=== PATIENT | male | born 1940 | race Caucasian/White ===

== ENCOUNTER 2017-07-29 14:26 | Emergency (ER) | payer MEDICARE, OTHER ==
[2017-07-29 14:45] VITALS: BP 160/85
--- NOTE | 2017-07-29 15:17 | ER Document Report ---
ED Medical Screen (RME) - General Chief Complaint: Back Pain Stated Complaint: BACK PAIN Time Seen by Provider: 07/29/17 15:10 Notes: RAPID MEDICAL EVALUATION DISCLOSURE I have seen this patient as part of a Rapid Medical Evaluation and, if applicable, placed any initially appropriate orders. The patient will be seen and fully evaluated, including a full history and physical exam, by a provider ( in Main ED or Fast Track) when a room becomes available. 77-year-old male here with complaints of left-sided flank pain as well as urinary frequency ongoing for the past few days. He has not had any hematuria or hesitancy. He has a history of kidney stones but reports this feels different. He has also been short of breath and coughing for the past 2-3 weeks and was admitted to the hospital in [place] for several days and he did receive nebulizer treatments and IV antibiotics for "bronchitis". He denies any heavy lifting or traumatic injury. EXAM Moderate left lumbar paraspinal muscle tenderness to light palpation Minimally diffuse coarse breath sounds bilaterally, no wheezes TRAVEL OUTSIDE OF THE [place] IN LAST 30 DAYS: No - Related Data Allergies/Adverse Reactions: ciprofloxacin [From Cipro] Allergy (Severe, Verified 11/04/11 14:50) ciprofloxacin HCl [From Cipro] Allergy (Severe, Verified 11/04/11 14:50) sulfamethoxazole [From Septra] Allergy (Severe, Verified 11/04/11 14:50) trimethoprim [From Septra] Allergy (Severe, Verified 11/04/11 14:50) latex [Latex] Allergy (Unknown, Verified 11/04/11 14:51) Penicillins Allergy (Verified 11/04/11 14:50) tylenol with codiene Allergy (Uncoded 11/04/11 14:50) Home Medications: naproxen. chondroitin. glucosamine. tylenol PRN. pantoprazole. lisinopril. lipitor. tessalon pearls. doxycycline Past Medical History - Social History Frequency of alcohol use: None Drug Abuse: None - Past Medical History Cardiac Medical History: Reports: Hx Hypercholesterolemia, Hx Hypertension Pulmonary Medical History: Reports: Hx Pneumonia Renal/ Medical History: Reports: Hx Renal Insufficiency - resolved. Denies: Hx Peritoneal Dialysis Malignancy Medical History: Reports Hx Prostate Cancer GI Medical History: Reports: Hx Gastroesophageal Reflux Disease, Hx Hiatal Hernia, Hx Colonoscopy, Hx Endoscopy Musculoskeltal Medical History: Reports Hx Arthritis, Reports Hx Musculoskeletal Deformity, Reports Hx Musculoskeletal Trauma Traumatic Medical History: Reports: Hx Fractures Past Surgical History: Reports: Hx Genitourinary Surgery - prostate removal, Hx Orthopedic Surgery - bilateral knee replacement, RIGHT HIP, reattachment of 3 adn 4 finger left - Immunizations Immunizations up to date: No Hx Diphtheria, Pertussis, Tetanus Vaccination: No - Pt states at least 7yrs ago Physical Exam - Vital signs Vitals: Temp Pulse Resp BP Pulse Ox 97.3 F 75 16 160/85 H 95 07/29/17 14:43 07/29/17 14:43 07/29/17 14:43 07/29/17 14:43 07/29/17 14:43 Course - Vital Signs Vital signs: Temp Pulse Resp BP Pulse Ox 97.3 F 75 16 160/85 H 95 07/29/17 14:43 07/29/17 14:43 07/29/17 14:43 07/29/17 14:43 07/29/17 14:43
[2017-07-29 15:40] LABS: ABSOLUTE BASOPHILS # (AUTO) 0.1 10^3/uL (0.0-0.2); ABSOLUTE EOSINOPHILS # (AUTO) 0.1 10^3/uL (0.0-0.6); ABSOLUTE LYMPHOCYTES (AUTO) 2.1 10^3/uL (0.5-4.7); ABSOLUTE MONOCYTES (AUTO) 0.5 10^3/uL (0.1-1.4); ABSOLUTE NEUT (AUTO) 4.6 10^3/uL (1.7-8.2); BASOPHILS % (AUTO) 0.8 % (0-2); HEMATOCRIT 44.4 % (37.9-51.0); LYMPHOCYTES % (AUTO) 28.2 % (13-45); MEAN CORPUSCULAR HEMOGLOBIN 30.8 pg (27.0-33.4); MEAN CORPUSCULAR HGB CONC 33.8 g/dL (32.0-36.0); MEAN CORPUSCULAR VOLUME 91 fl (80-97); PLATELET COUNT 222 10^3/uL (150-450); RED BLOOD COUNT 4.87 10^6/uL (4.35-5.55); RED CELL DISTRIBUTION WIDTH 14.2 % (11.5-14.0); TOTAL CELLS COUNTED % (AUTO) 100 %; WHITE BLOOD COUNT 7.3 10^3/uL (4.0-10.5)
[2017-07-29 15:45] LABS: APPEARANCE,URINE CLEAR; BILIRUBIN,URINE NEGATIVE (NEGATIVE); COLOR,URINE YELLOW; GLUCOSE, URINE NEGATIVE (NEGATIVE); KETONES,URINE NEGATIVE (NEGATIVE); LEUKOCYTE ESTERASE,URINE NEGATIVE (NEGATIVE); NITRITE,URINE NEGATIVE (NEGATIVE); PROTEIN,URINE NEGATIVE (NEGATIVE); UROBILINOGEN,URINE NEGATIVE mg/dL (<2.0)
--- NOTE | 2017-07-29 15:49 | RADIOLOGY REPORT (SQ) ---
EXAM DESCRIPTION: CHEST 2 VIEWS COMPLETED DATE/TIME: 07/29/2017 3:36 pm REASON FOR STUDY: cough SOB COMPARISON: 03/13/2011 EXAM PARAMETERS: NUMBER OF VIEWS: two views TECHNIQUE: Digital Frontal and Lateral radiographic views of the chest acquired. RADIATION DOSE: NA LIMITATIONS: none FINDINGS: LUNGS AND PLEURA: Slight to mild prominence of the interstitial markings in the lungs. N o acute pulmonary consolidation. No pneumothorax or pleural effusion. MEDIASTINUM AND HILAR STRUCTURES: No masses or contour abnormalities. HEART AND VASCULAR STRUCTURES: Heart normal size. No evidence for failure. BONES: No acute findings. HARDWARE: None in the chest. OTHER: No other significant finding. IMPRESSION: 1 No significant interval changes since the prior examination dated 03/13/2011. No acut e pulmonary findings. TECHNICAL DOCUMENTATION: JOB ID: [id number] [employer]- All Rights Reserved Reading location - IP/workstation name: [email or web address]
--- NOTE | 2017-07-29 15:55 | ER Document Report ---
ED General - General Chief Complaint: Back Pain Stated Complaint: BACK PAIN Time Seen by Provider: 07/29/17 15:10 Mode of Arrival: Ambulatory Information source: Patient Notes: 77-year-old male with a history of hypertension, hyperlipidemia, previous kidney stones presents with complaint of left lower back pain that started 3 days prior to arrival. Patient describes the pain as sharp, intermittent and located in the paraspinal musculature of the lumbar spine on the left. Patient reports pain is worse with movement, walking and relieved with remaining still. He denies leg weakness. Patient denies any injury, falls. He admits to associated urinary frequency but denies dysuria or hematuria. He has taken Tylenol for pain without relief. He does report a recent hospitalization in [place] for pneumonia. He is currently taking antibiotics for this. Patient denies fever, chills, chest pain, shortness of breath, abdominal pain. TRAVEL OUTSIDE OF THE [place] IN LAST 30 DAYS: No - Related Data Allergies/Adverse Reactions: ciprofloxacin [From Cipro] Allergy (Severe, Verified 11/04/11 14:50) ciprofloxacin HCl [From Cipro] Allergy (Severe, Verified 11/04/11 14:50) sulfamethoxazole [From Septra] Allergy (Severe, Verified 11/04/11 14:50) trimethoprim [From Septra] Allergy (Severe, Verified 11/04/11 14:50) latex [Latex] Allergy (Unknown, Verified 11/04/11 14:51) Penicillins Allergy (Verified 11/04/11 14:50) tylenol with codiene Allergy (Uncoded 11/04/11 14:50) Home Medications: naproxen. chondroitin. glucosamine. tylenol PRN. pantoprazole. lisinopril. lipitor. tessalon pearls. doxycycline Past Medical History - General Information source: Patient, Relative - Social History Smoking Status: Never Smoker Frequency of alcohol use: None Drug Abuse: None Family History: Arthritis, CAD, Hyperlipidemia, Hypertension, Malignancy Patient has suicidal ideation: No Patient has homicidal ideation: No - Past Medical History Cardiac Medical History: Reports: Hx Hypercholesterolemia, Hx Hypertension Pulmonary Medical History: Reports: Hx Pneumonia Renal/ Medical History: Reports: Hx Renal Insufficiency - resolved. Denies: Hx Peritoneal Dialysis Malignancy Medical History: Reports Hx Prostate Cancer GI Medical History: Reports: Hx Gastroesophageal Reflux Disease, Hx Hiatal Hernia, Hx Colonoscopy, Hx Endoscopy Musculoskeltal Medical History: Reports Hx Arthritis, Reports Hx Musculoskeletal Deformity, Reports Hx Musculoskeletal Trauma Traumatic Medical History: Reports: Hx Fractures Past Surgical History: Reports: Hx Genitourinary Surgery - prostate removal, Hx Orthopedic Surgery - bilateral knee replacement, RIGHT HIP, reattachment of 3 adn 4 finger left - Immunizations Immunizations up to date: No Hx Diphtheria, Pertussis, Tetanus Vaccination: No - Pt states at least 7yrs ago Hx Pneumococcal Vaccination: 03/25/09 Review of Systems - Review of Systems Notes: Patient denies fever, chills, nausea, vomiting, headache, ear pain, sore throat , cough, chest pain, shortness of breath, abdominal pain, back pain, dysuria, hematuria, rash, weakness, urinary retention, saddle anesthesia, fecal incontinence. Physical Exam - Vital signs Vitals: Temp Pulse Resp BP Pulse Ox 97.3 F 75 16 160/85 H 95 07/29/17 14:43 07/29/17 14:43 07/29/17 14:43 07/29/17 14:43 07/29/17 14:43 Interpretation: Normal, Hypertensive - patient reports being out of his lisinopril for the last 4 days. Notes: PHYSICAL EXAMINATION: GENERAL: Well-appearing, well-nourished and in no acute distress. HEAD: Atraumatic, normocephalic. EYES: Pupils equal round and reactive to light, extraocular movements intact, sclera anicteric, conjunctiva are normal. ENT: Nares patent, oropharynx clear without exudates. Moist mucous membranes. NECK: Normal range of motion, supple without lymphadenopathy LUNGS: Breath sounds clear to auscultation bilaterally and equal. No wheezes rales or rhonchi. HEART: Regular rate and rhythm without murmurs ABDOMEN: Soft, nontender, nondistended abdomen. No guarding, no rebound. No masses appreciated. Musculoskeletal: Normal range of motion, no pitting or edema. No cyanosis. left CVA tenderness. NEUROLOGICAL: Cranial nerves grossly intact. Normal speech, normal gait. Normal sensory, motor exams. 5/5 strength in dorsi and plantar flexion. Straight leg raise negative bilaterally. PSYCH: Normal mood, normal affect. SKIN: Warm, Dry, normal turgor, no rashes or lesions noted. Course - Re-evaluation Re-evalutation: 07/31/17 14:25 Microbiology 07/29/17 16:15 Blood Culture - Preliminary Blood NO GROWTH IN 24 HOURS 07/29/17 16:03 Blood Culture - Preliminary Blood NO GROWTH IN 24 HOURS Laboratory 07/29/17 07/29/17 07/29/17 15:25 15:25 15:25 WBC 7.3 RBC 4.87 Hgb 15.0 Hct 44.4 MCV 91 MCH 30.8 MCHC 33.8 RDW 14.2 H Plt Count 222 Seg Neutrophils % 63.0 Lymphocytes % 28.2 Monocytes % 7.0 Eosinophils % 1.0 Basophils % 0.8 Absolute Neutrophils 4.6 Absolute Lymphocytes 2.1 Absolute Monocytes 0.5 Absolute Eosinophils 0.1 Absolute Basophils 0.1 Sodium 142.4 Potassium 4.3 Chloride 107 Carbon Dioxide 27 Anion Gap 8 BUN 21 H Creatinine 0.94 Est GFR ( Amer) > 60 Est GFR (Non-Af Amer) > 60 Glucose 97 Calcium 9.5 Total Bilirubin 0.5 Direct Bilirubin 0.3 Neonat Total Bilirubin Not Reportable Neonat Direct Bilirubin Not Reportable Neonat Indirect Bili Not Reportable AST 16 L ALT 23 Alkaline Phosphatase 58 Total Protein 5.9 L Albumin 3.7 Lipase 99.0 Urine Color YELLOW Urine Appearance CLEAR Urine pH 5.0 Ur Specific [place] 1.020 Urine Protein NEGATIVE Urine Glucose (UA) NEGATIVE Urine Ketones NEGATIVE Urine Blood NEGATIVE Urine Nitrite NEGATIVE Urine Bilirubin NEGATIVE Urine Urobilinogen NEGATIVE Ur Leukocyte Esterase NEGATIVE Urine WBC (Auto) 1 Urine RBC (Auto) 0 Urine Mucus (Auto) RARE Urine Ascorbic Acid NEGATIVE Chest X-Ray 07/29/17 15:15 IMPRESSION: 1 No significant interval changes since the prior examination dated 03/13/2011. No acute pulmonary findings. Abdomen/Pelvis CT 07/29/17 15:49 IMPRESSION: 1. Bilateral renal calculi. Mild dilatation of the distal left ureter without visualized ureteral or bladder stone, possibly due to recent stone passage. 2. Cholelithiasis. 07/31/17 14:26 77-year-old male presents with complaint of left flank pain started 3 days prior to all. Upon arrival vitals reviewed patient is hypertensive he is in no acute distress. He does not appear toxic or dehydrated. On exam patient's does have left CVA tenderness. Abdomen is within normal limits. CT of the abdomen and pelvis did show bilateral renal calculi and mild dilation of the distal left visualization of the stone which could indicate that the patient recently passed stone. Patient has no significant laboratory findings, urinalysis is without infection. Patient did receive low-dose Toradol and Tylenol for his pain. On reevaluation he states the pain has improved. I did discuss the findings of the CAT scan with the and the patient. He is requesting discharge home at this point. Patient and spouse were provided the opportunity to ask questions, and express concerns. Discharge instructions discussed. Patient is agreeable with discharge home. Return indications explained and discussed with the patient who displays understanding. Patient encouraged to return to the emergency department immediately with any concerns. - Vital Signs Vital signs: Temp Pulse Resp BP Pulse Ox 97.3 F 75 16 160/85 H 95 07/29/17 14:43 07/29/17 14:43 07/29/17 14:43 07/29/17 14:43 07/29/17 14:43 - Laboratory Result Diagrams: 07/29/17 15:25 07/29/17 15:25 Laboratory results interpreted by me: 07/29/17 07/29/17 15:25 15:25 RDW 14.2 H BUN 21 H AST 16 L Total Protein 5.9 L - Diagnostic Test Radiology reviewed: Image reviewed, Reports reviewed Discharge - Discharge Clinical Impression: Left flank pain Condition: Good Disposition: HOME, SELF-CARE Instructions: Flank Pain ([facility]), Gallbladder Disease ([facility]), Kidney Stone ([facility]) Additional Instructions: Follow up with your physician tomorrow for further care or return to the ED IMMEDIATELY if symptoms worsen or new concerns occur. If you cannot afford to follow up with your primary care physician a list of low cost clinics have been provided at the end of your discharge papers as well. Prescriptions: Hydrocodone/Acetaminophen [[place] 5-325 mg Tablet] 1 tab PO Q6H #10 tablet Forms: Elevated Blood Pressure
[2017-07-29 16:01] LABS: ALANINE AMINOTRANSFERASE 23 U/L (21-72); ALBUMIN 3.7 g/dL (3.5-5.0); ALKALINE PHOSPHATASE 58 U/L (38-126); ANION GAP 8 (5-19); ASPARTATE AMINO TRANSFERASE 16 U/L (17-59); BILIRUBIN,DIRECT 0.3 mg/dL (0.0-0.4); BILIRUBIN,TOTAL 0.5 mg/dL (0.2-1.3); BLOOD UREA NITROGEN 21 mg/dL (7-20); CALCIUM 9.5 mg/dL (8.4-10.2); CARBON DIOXIDE 27 mmol/L (22-30); CHLORIDE 107 mmol/L (98-107); GLUCOSE 97 mg/dL (75-110); POTASSIUM 4.3 mmol/L (3.6-5.0); SODIUM 142.4 mmol/L (137-145); TOTAL PROTEIN 5.9 g/dL (6.3-8.2)
[2017-07-29] MEDS ORDERED: ACETAMINOPHEN 325 MG TABLET PO ONE (16:45)
[2017-07-29] MEDS ORDERED: KETOROLAC TROMETHAMINE 60 MG/2 ML SDV IM ONE (16:45)
--- NOTE | 2017-07-29 16:50 | RADIOLOGY REPORT (SQ) ---
EXAM DESCRIPTION: CT ABD/PELVIS NO ORAL OR IV COMPLETED DATE/TIME: 07/29/2017 4:34 pm REASON FOR STUDY: left flank pain COMPARISON: 02/19/2015. TECHNIQUE: CT scan of the abdomen and pelvis performed without intravenous or oral contrast. Images reviewed with lung, soft tissue, and bone windows. Reconstructed coronal and sagittal MPR images revi ewed. All images stored on PACS. All CT scanners at this facility use dose modulation, iterative reconstruction, and/or weight based d osing when appropriate to reduce radiation dose to as low as reasonably achievable (ALARA). [facility]: Dose Right [facility]: CareDose [facility]: Dose Right [facility]: Teradose 4D [facility]: Smart Qwilt RADIATION DOSE: CT Rad equipment meets quality standard of care and radiation dose reduction techniq ues were employed. CTDIvol: 16.5 mGy. DLP: 949 mGy-cm.mGy. LIMITATIONS: Artifact from right hip arthroplasty. FINDINGS: LOWER CHEST: No significant findings. No nodules or infiltrates. NON-CONTRASTED LIVER, SPLEEN, ADRENALS: Evaluation limited by lack of IV contrast. No identified sign ificant masses. PANCREAS: No masses. No peripancreatic inflammatory changes. GALLBLADDER: Gallstones. No inflammatory changes to suggest cholecystitis. RIGHT KIDNEY AND URETER: No suspicious masses. Assessment limited by lack of IV contrast. Renal samantha culi measuring up to about 7 mm. Parapelvic cysts. No hydronephrosis or hydroureter. LEFT KIDNEY AND URETER: No suspicious masses. Assessment limited by lack of IV contrast. Renal calc awais measuring up to about 4 mm. Cortical scarring. Mild dilatation of the distal left ureter. AORTA AND RETROPERITONEUM: No aneurysm. No retroperitoneal masses or adenopathy. BOWEL AND PERITONEAL CAVITY: No obvious masses or inflammatory changes. No free fluid. APPENDIX: Normal. PELVIS, BLADDER, AND ABDOMINAL WALL:No abnormal masses. No free fluid. Bladder normal. BONES: No acute findings. OTHER: No other significant finding. IMPRESSION: 1. Bilateral renal calculi. Mild dilatation of the distal left ureter without visualized ureteral or bladder stone, possibly due to recent stone passage. 2. Cholelithiasis. COMMENT: Quality ID # [id number]: Final reports with documentation of one or more dose reduction techniques (e.g., Automated exposure control, adjustment of the mA and/or kV according to patient size, use of iterative reconstruction technique) TECHNICAL DOCUMENTATION: JOB ID: [id number] [employer]- All Rights Reserved Reading location - IP/workstation name: [email or web address]
== END 2017-07-29 18:37 | disposition home or self-care (01) ==
LOC: ER 14:26
DX: N20.0 Calculus of kidney (principal); N28.82 Megaloureter; K80.20 Calculus of gallbladder without cholecystitis without obstruction; K21.9 Gastro-esophageal reflux disease without esophagitis; M54.5 Low back pain; I10 Essential (primary) hypertension; T46.4X6A Underdosing of angiotensin-converting-enzyme inhibitors, initial encounter; Z91.128 Patient's intentional underdosing of medication regimen for other reason; Z91.14 Patient's other noncompliance with medication regimen; J18.9 Pneumonia, unspecified organism; R35.0 Frequency of micturition; E78.00 Pure hypercholesterolemia, unspecified; Z88.1 Allergy status to other antibiotic agents; Z91.040 Latex allergy status; Z88.0 Allergy status to penicillin; Z88.5 Allergy status to narcotic agent; Z88.6 Allergy status to analgesic agent; Z79.899 Other long term (current) drug therapy; Z79.1 Long term (current) use of non-steroidal anti-inflammatories (NSAID); Z85.46 Personal history of malignant neoplasm of prostate
CPT/HCPCS: 99284; 96372; 36415; 87040; 83690; 85025; 80053; 81001; 71046; 74176; A9270; J1885

== ENCOUNTER → 2017-08-01 | Outpatient (CLI) | payer MEDICARE, OTHER | LOC: OD 11:09 | PROVIDERS: ATTEND Urology | DX: N40.1 Benign prostatic hyperplasia with lower urinary tract symptoms (principal) | CPT/HCPCS: 36415; 84153 ==